=== PATIENT | male | born 2005 | race Hispanic/Latino ===

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

== ENCOUNTER 2025-01-26 00:38 | Emergency (ER) | payer OTHER, SELFPAY ==
[2025-01-26] MEDS ORDERED: Benzonatate 100 MG CAP ONE (02:49)
[2025-01-26] MEDS ORDERED: Dexamethasone 10 MG/ML VIAL ONE (02:49)
== END 2025-01-26 02:57 | disposition home or self-care (01) ==
LOC: ERS 00:38
DX: J20.9 Acute bronchitis, unspecified (principal)
CPT/HCPCS: 87081; 87428; 87430; 99283; J1100

== ENCOUNTER 2025-02-19 20:32 | Emergency (ER) | payer BC, OTHER, SELFPAY ==
[2025-02-19] MEDS ORDERED: Ibuprofen 800 MG TAB ONE (21:58)
== END 2025-02-19 22:40 | disposition home or self-care (01) ==
LOC: ERS 20:32
DX: M79.642 Pain in left hand (principal); Z55.6 Problems related to health literacy; Y04.8XXA Assault by other bodily force, initial encounter; Y99.0 Civilian activity done for income or pay
CPT/HCPCS: 29125; 99284